=== PATIENT | female | born 1950 ===

== ENCOUNTER 2019-12-20 05:15 | Day surgery (SDC) | payer OTHER ==
[~2019-12-20 05:15] MED LIST: EVISTA60 MG PO; FORTAMET1000 MG PO; GLIPIZIDE XL10 MG PO; VERELAN240 MG PO; ZESTRIL20 MG PO; ZOCOR40 MG PO; [UNRECOGNIZED DRUG - OTHER] PO
[2019-12-20] MEDS ORDERED: MACROBID 100 M100 MG PO (11:19)
[2019-12-20] MEDS ORDERED: ULTRACET PO (11:20)
== END 2019-12-20 12:50 | disposition home or self-care (01) ==
LOC: CIR.AMB 05:15 → ADM 12:00 → CIR.AMB 12:00
DX: N81.3 Complete uterovaginal prolapse (principal)